=== PATIENT | female | born 1930 | race Caucasian/White ===

== ENCOUNTER → 2016-07-02 | Outpatient (CLI) | payer MEDICARE, BC ==
[2016-07-02 15:02] LABS: HEMATOCRIT 44.3 % (35.0-45.0); HEMOGLOBIN 14.2 gm/dL (12.0-16.0); MEAN CELL VOLUME 91.8 FL (83-96); MEAN CORPUSCULAR HEMOGLOBIN 29.4 PG (28-34); MEAN PLATELET VOLUME 7.4 FL (6.5-11.5); RED BLOOD COUNT 4.83 X10e (3.90-5.30); RED CELL DISTRIBUTION WIDTH 13.1 % (11.0-15.5); WHITE BLOOD COUNT 7.5 X10e3 (4.0-10.5)
[2016-07-02 15:53] LABS: ALBUMIN SERUM 3.9 g/dL (3.5-5.0); BILIRUBIN, DIRECT 0.1 mg/dL (0.0-0.2); BILIRUBIN,INDIRECT 0.5 mg/dL (0.0-0.9); BILIRUBIN,TOTAL 0.6 mg/dL (0.2-2.0); PROTEIN TOTAL SERUM 6.8 g/dL (6.0-8.3)
== END | disposition home or self-care (01) ==
LOC: CLAB 14:24
DX: B35.1 Tinea unguium (principal)
CPT/HCPCS: 36415; 80076; 85027

== ENCOUNTER → 2016-07-06 | Outpatient (CLI) | payer MEDICARE, BC ==
--- NOTE | ~2016-07-06 | MY11 ---
[facility] [[email or web address] [facility] A Service [facility] RADIOLOGY TEXT RESULTS PATIENT: FANNY LEOS LOCATION: [facility] : 34 UNIT #: [id number] AGE: [address]: ASHLEY HANCOCK ARPN SEX: F ORDER DR: [id number] [address] [address] [id number] O MR#: [id number] Acc #: [id number] NAME: FANNY LEOS : 1930 SEX: F STUDY DATE/TIME: 07/06/2016 12:03 UNIT: [facility] ROOM: STUDY DESCRIPTION: MY Mammogram Screening Dig [place] Attending Physician: Ashley Hancock A.P.R.N. Referring Physician: Ashley Hancock A.P.R.N. Ordering Physician: Ashley Hancock A.P.R.N. Primary Care Physician: Vidya Osorio M.D. MEDICAL IMAGING REPORT This report is preliminary unless electronic signature is present. EXAM Bilateral digital screening mammogram with CAD. DATE OF EXAM 07/06/2016 INDICATIONS 85-year-old female for routine screening. No reported problems. No personal history of breast cancer. Family history positive in the patient's mother and father. No surgeries. TECHNIQUE CC and MLO views of the breasts were obtained and reviewed with an FDA-approved CAD device. COMPARISON 06/27/15, 06/11/14, 03/20/13. FINDINGS Breast parenchyma is composed of heterogeneously dense breast tissue. The pattern is unchanged and symmetric. There is no new dominant nodule, mass or suspicious clustered microcalcifications. Benign calcifications are present. IMPRESSION 1. Benign screening mammogram, 1 year follow up recommended. Patients over the age of 40 are entered into a reminder system with target due date for the next mammogram. A result letter will also be sent to the patient. BIRADS: 2 Benign findings. [facility] A Service [facility] RADIOLOGY TEXT RESULTS PATIENT: FANNY LEOS LOCATION: [facility] : 34 UNIT #: [id number] AGE: [address]: ASHLEY HANCOCK ARPN SEX: F ORDER DR: Dictated by... Alfred Aldrich M.D. THIS IS AN ELECTRONICALLY VERIFIED REPORT Alfred Aldrich M.D. at 07/09/2016 7:31 AM [facility] TD: 07/06/2016 19:08 JOB #: [id number] MEDICAL IMAGING REPORT Page 1 of 1
== END | disposition home or self-care (01) ==
LOC: SMAM 11:34
DX: Z12.31 Encounter for screening mammogram for malignant neoplasm of breast (principal); Z80.3 Family history of malignant neoplasm of breast
CPT/HCPCS: G0202

== ENCOUNTER → 2016-07-31 | Outpatient (CLI) | payer MEDICARE, BC ==
[2016-07-31 16:35] LABS: HEMATOCRIT 44.2 % (35.0-45.0); HEMOGLOBIN 14.2 gm/dL (12.0-16.0); MEAN CELL VOLUME 91.8 FL (83-96); MEAN CORPUSCULAR HEMOGLOBIN 29.5 PG (28-34); MEAN CORPUSCULAR HGB CONC 32.1 g/dL (30-36); MEAN PLATELET VOLUME 7.5 FL (6.5-11.5); RED BLOOD COUNT 4.82 X10e (3.90-5.30); WHITE BLOOD COUNT 6.9 X10e3 (4.0-10.5)
[2016-07-31 17:06] LABS: ALBUMIN SERUM 4.3 g/dL (3.5-5.0); BILIRUBIN, DIRECT 0.1 mg/dL (0.0-0.2); BILIRUBIN,INDIRECT 0.6 mg/dL (0.0-0.9); BILIRUBIN,TOTAL 0.7 mg/dL (0.2-2.0); PROTEIN TOTAL SERUM 7.1 g/dL (6.0-8.3)
== END | disposition home or self-care (01) ==
LOC: CLAB 16:06
DX: B35.1 Tinea unguium (principal)
CPT/HCPCS: 36415; 80076; 85027

== ENCOUNTER → 2016-09-28 | Outpatient (CLI) | payer MEDICARE, BC ==
[2016-09-28 13:14] LABS: ALT (SGPT) 17 U/L (10-40); AST (SGOT) 21 U/L (10-42); CHOLESTEROL 209 mg/dL (0-200); HDL CHOLESTEROL 57 mg/dL (35-95); LDL CHOLESTEROL 126 mg/dL ([, -130]); LDL/HDL RATIO 2 RATIO (0-4); TRIGLYCERIDES 130 mg/dL (10-160)
== END | disposition home or self-care (01) ==
LOC: CLAB 11:25
DX: E78.2 Mixed hyperlipidemia (principal)
CPT/HCPCS: 36415; 80061; 82306; 84450; 84460